=== PATIENT | female | born 1995 | race Native Hawaiian/Other Pacific Islander ===

== ENCOUNTER 2017-02-25 12:15 | Outpatient (CLI) | payer BC ==
[2017-02-25 12:30] LABS: PLATELET COUNT 200 K/uL (152-353)
== END 2017-02-25 13:20 | disposition home or self-care (01) ==
LOC: LABW 12:15
PROVIDERS: Physician Assistant
DX: R10.9 Unspecified abdominal pain (principal)
CPT/HCPCS: 36415; 85027

== ENCOUNTER 2017-06-02 11:00 | Outpatient (CLI) | payer BC | END 2017-06-02 19:07 | disposition home or self-care (01) | LOC: RAD 11:00 | DX: R10.2 Pelvic and perineal pain (principal); R30.0 Dysuria; K59.09 Other constipation; R80.8 Other proteinuria ==

== ENCOUNTER 2017-10-05 13:13 | Outpatient (CLI) | payer BC | END 2017-10-05 21:12 | disposition home or self-care (01) | LOC: LABW 13:13 | DX: R50.9 Fever, unspecified (principal); Z20.818 Contact with and (suspected) exposure to other bacterial communicable diseases | CPT/HCPCS: 87081; 87804; 87880 ==

== ENCOUNTER 2019-11-08 13:50 | Outpatient (CLI) | payer OTHER ==
[2019-11-08 14:17] LABS: PLATELET COUNT 223 K/uL (152-353)
== END 2019-11-08 19:36 | disposition home or self-care (01) ==
LOC: LABW 13:50
PROVIDERS: Orthopaedic Surgery Foot and Ankle Surgery
DX: Z01.818 Encounter for other preprocedural examination (principal); J45.909 Unspecified asthma, uncomplicated; F41.9 Anxiety disorder, unspecified; K21.9 Gastro-esophageal reflux disease without esophagitis
CPT/HCPCS: 36415; 81025; 85027

== ENCOUNTER 2020-06-15 12:37 | Outpatient (CLI) | payer OTHER ==
[2020-06-15 13:25] LABS: PLATELET COUNT 241 K/uL (152-353)
== END 2020-06-15 19:04 | disposition home or self-care (01) ==
LOC: LABW 12:37
PROVIDERS: Orthopaedic Surgery Foot and Ankle Surgery
DX: M93.272 Osteochondritis dissecans, left ankle and joints of left foot (principal); E55.9 Vitamin D deficiency, unspecified
CPT/HCPCS: 36415; 80048; 82306; 85027

== ENCOUNTER 2021-05-07 09:32 | Outpatient (CLI) | payer OTHER | END 2021-05-07 19:29 | disposition home or self-care (01) | LOC: MRI 09:32 | PROVIDERS: ATTEND Orthopaedic Surgery | DX: M89.9 Disorder of bone, unspecified (principal) ==

== ENCOUNTER 2021-07-23 12:18 | Outpatient (CLI) | payer OTHER | END 2021-07-23 20:24 | disposition home or self-care (01) | LOC: RAD 12:18 | PROVIDERS: ATTEND Orthopaedic Surgery | DX: M25.572 Pain in left ankle and joints of left foot (principal) ==

== ENCOUNTER 2022-09-08 00:51 | Emergency (ER) | payer OTHER ==
[~2022-09-08] VITALS: Ht 160 cm; Wt 78.9 kg
[2022-09-08 03:25] VITALS: BP 128/72; TEMP 98.2
== END 2022-09-08 03:25 | disposition home or self-care (01) ==
LOC: ED 00:51
DX: N20.0 Calculus of kidney (principal); Z87.442 Personal history of urinary calculi
CPT/HCPCS: 81000; 81025; 96374; 96375; 99284; J1885; J2270